=== PATIENT | male | born 1985 | race Caucasian/White ===

== ENCOUNTER 2018-03-11 23:45 | Emergency (ER) | payer BC, OTHER ==
[~2018-03-11] VITALS: Ht 180.3 cm; Wt 86.2 kg
--- NOTE | ~2018-03-11 | EKG ---
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
[2018-03-12 00:12] LABS: ABSOLUTE NEUTROPHILS 2.8 thou/uL (1.4-8.2); BASOPHILS 1.1 % (0.0-2.0); EOSINOPHILS 9.6 % (0.0-3.0); HEMATOCRIT 46.5 % (42.0-52.0); HEMOGLOBIN 16.6 gm/dL (14.0-18.0); LYMPHOCYTES 48.4 % (24.0-44.0); MCH 32.3 pg (26.0-34.0); MCHC 35.7 g/dL (28.0-37.0); MCV 90.5 fL (80.0-100.0); MONOCYTES 9.1 % (1.0-8.0); PLATELET COUNT 239 thou/uL (150-400); POLYS 31.8 % (36.0-66.0); RBC 5.14 mil/uL (4.50-6.00); WBC 8.9 thou/uL (4.0-11.0)
[2018-03-12 00:31] LABS: ANION GAP 9 mmol/L (7-16); BUN 12 mg/dL (7-18); CALCIUM 8.7 mg/dL (8.5-10.1); CHLORIDE 104 mmol/L (98-107); CO2 26 mmol/L (21-32); CREATININE 0.9 mg/dL (0.7-1.3); POTASSIUM 4.1 mmol/L (3.5-5.1); SODIUM 139 mmol/L (136-145)
[2018-03-12 00:39] LABS: TROPONIN-I <0.06 ng/mL (<0.06)
[2018-03-12 00:46] LABS: GLUCOSE 104 mg/dL (74-106)
[2018-03-12 01:16] VITALS: BP 124/71
== END 2018-03-12 01:17 | disposition home or self-care (01) ==
LOC: ER 23:45
PROVIDERS: Emergency Medicine
DX: R00.2 Palpitations (principal); R07.89 Other chest pain; Z88.1 Allergy status to other antibiotic agents